=== PATIENT | male | born 1995 | race Caucasian/White ===

== ENCOUNTER 2017-06-26 13:16 | Emergency (ER) | payer MEDICAID ==
[~2017-06-26] VITALS: Ht 167.6 cm; Wt 100.0 kg
[2017-06-26] MEDS ORDERED: CEPH500 PO (13:35)
[2017-06-26 13:37] VITALS: BP 145/86
[2017-06-26] MEDS ORDERED: POVIDONE-IODINE 10% 15 ML SOLUTION UD TP ONE (13:45)
== END 2017-06-26 14:23 | disposition home or self-care (01) ==
LOC: EMS 13:17
DX: Z48.01 Encounter for change or removal of surgical wound dressing (principal); F17.210 Nicotine dependence, cigarettes, uncomplicated
CPT/HCPCS: 99282